=== PATIENT | female | born 1985 | race Caucasian/White ===

== ENCOUNTER → 2018-01-07 15:00 | Outpatient (CLI) | payer BC, SELFPAY ==
--- NOTE | 2018-01-07 15:03 | RAD_ITS ---
STUDY: X-RAY - LEFT KNEE REASON FOR EXAM: Pain, no specific injury. TECHNIQUE: 4 view(s) of the knee. COMPARISON: None. FINDINGS: Normal visualized distal femur. Normal visualized proximal tibia and fibula. Normal proximal tibiofibular articulation. Normal medial femorotibial compartment. Normal lateral femorotibial compartment. Normal patellofemoral articulation. The soft tissue structures are unremarkable. RAD/Knee 4 or More Views IMPRESSION: Normal x-ray examination of the left knee. Electronically Signed: Arjun Le MD at 15:44 EST Tel , Service support ,
== END ==
PROVIDERS: Visit Provider Orthopaedic Surgery
DX: M25.562 Pain in left knee (principal)
CPT/HCPCS: 73564

== ENCOUNTER 2018-02-23 09:00 | Outpatient (RCR) | payer BC, SELFPAY ==
--- NOTE | 2018-01-11 11:12 | HP.PTEVAL_ITS ---
Patient's Visit Information VIVIANA GAMBOA is a 32 year old F referred to Physical Therapy by DO LENNY Jara with a diagnosis of Patellar tracking issues.. Date of Evaluation: 01/11/18 Physical Therapist: Galo Robles DPT, [place] - Visit Plan Frequency: 1-2x /Week Duration: 2-4 Weeks Plan: Video motion analysis and corrective exercise prescription(likely need to focus on soleus and ITB stretching and hip and quad strength). To see for 2-4 weeks for ex depending on patients ability to get I with corrective exercises. Schedule her with Juliocesar/Robert as often as needed to achieve this goal. And wean back to running. - Subjective Subjective: L knee pain and swelling after running. Doctor noticed quad muscle is atrophied. 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 Has not reaally run in 1-[address] Doyle for R ankle tendons. Just had another baby who is 7 months old. L knee hurt trying to get back into it runnign after this latest kid. No h/o knee pain with running but it has hurt with biking in the past. After the run is when it hurt three weeks ago. Ran 2-3 times and 2-3 miles each time. Does some high intenisty stuff, used to do a lot of p90x type ex.. Does yoga 2-3x/week. Sleep is OK. Does home activities without a problem. It is running that bothers her. It pops and cracks. 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 No pain in last 3 weeks. Before that had pain with lots of squatting one month prior for 4 days. - Pain L knee pain anteriorly. Pain Intensity (Out of 10): 0 Pain Intensity Range: 0, 4 Comment: swelling - Objective Has orthotics for 6 months for R ankle problem that she has not run in before. L quad atrophied, B ITB max tight and does not fall to table at all in sidelying. Tender to touch in L patella and + patellar grind. Tender R peroneals at insertion. Walks and climbs steps I reciprocally without pain. Full aROM at B knees. Soleus and gastroc tight at 3 degrees DF with knee straight and bent. HS length is -10 at 90/90 test. quads show good flexibility. Hip ROM 80 B ER, 30 IR, 130 flexion, 25 extension, 40 abduction adduction to 3 degrees. strength at ankles is 5/5 withotu pain, knees 5/5 without pain but L VMO appears atrophied vs R. Hip strength 5 flexion 4+ ext, 4 - abd, 3+ IR and 4 ext rot. Mild pes cavus B feet. - Goals Goal 1:: Have video motion analysis and I with appropriate corrective exercises prescription. Goal Time Frame: 2-4 Weeks Goal 2:: Start running without pain for 2-3 miles Goal Time Frame: 4-6 Weeks - Rehabilitation Potential Physical Therapy Diagnosis: Tight ITB and weak hip and quad leading to running pain. Rehabilitation Potential: Good - Anticipated Interventions Patient/Client Instruction: Educate patient on: Condition, Plan of Care For the Purpose of:: To decrease pain, To increase tolerance to activity/ condition/position Therapeutic Exercise to Include: Strength training, Flexibilty training, Passive ROM For the Purpose of:: To decrease pain, To increase tolerance to activity/ condition/position Manual Therapy Techniques to Include: Soft tissue mobilization For the Purpose of:: To increase ROM Thank you for the opportunity to evaluate your patient. For Medicare and Medicare HMO plans, please review the plan of care and approve it. It will need to be FAXED BACK to us at [phone] for Medicare purposes. Please let me know if there are questions or concerns regarding this plan of care. Physician Signature: Date:
--- NOTE | 2018-04-26 15:03 | HP.PTDCNRP_ITS ---
HP - Discharge Summary (1) - Patient Information VIVIANA GAMBOA was seen in my office for initial evaluation on 01/11/18. The following Plan of Care was established for this patient: Initial Frequency: 1-2x /Week Initial Duration: 2-4 Weeks - Anticipated Interventions Patient/Client Instruction: Educate patient on: Condition, Plan of Care For the Purpose of:: To decrease pain, To increase tolerance to activity/ condition/position Therapeutic Exercise to Include: Strength training, Flexibilty training, Passive ROM For the Purpose of:: To decrease pain, To increase tolerance to activity/ condition/position Manual Therapy Techniques to Include: Soft tissue mobilization For the Purpose of:: To increase ROM This patient was last seen in our office 02/23/18. Pertinent comments regarding their Physical therapy will appear below: Pt seen 4 visits and seem to be improving but neglected to schedule any further visits in her plan of care. At this point, it has been over two months and I will discontinue due to nonattendance. At this point I will be discontinuing this patient from physical therapy. I would be happy to see this patient again in the future if found appropriate by the physician. Thank you! Galo Robles, DPT, [place]
== END 2018-02-23 19:00 | disposition home or self-care (01) ==
LOC: PT 09:00
PROVIDERS: Family Provider Family Medicine; PCP Family Medicine; Visit Provider Orthopaedic Surgery
DX: M22.2X2 Patellofemoral disorders, left knee (principal); M62.50 Muscle wasting and atrophy, not elsewhere classified, unspecified site
CPT/HCPCS: 97110; 97162; 97530